=== PATIENT | male | born 1980 | race Caucasian/White ===

== ENCOUNTER → 2016-05-26 | Day surgery (SDC) | payer OTHER ==
--- NOTE | 2016-05-24 13:33 | MH ---
cc: CHAPIN ROMERO DATE OF ADMISSION: 05/26/2016 DATE OF 1980 CHIEF COMPLAINT Tonsillitis. HISTORY A 36-year-old male with chronic and recurrent tonsillitis. It has been getting worse over the past few years. He has multiple infections and has problems with severe tonsil stones. He complains of halitosis. He has been gargling up to six times per day without improvement. He is to undergo tonsillectomy. PAST MEDICAL HISTORY MEDICATIONS Cephalexin PHYSICAL EXAMINATION GENERAL: A well-developed, well-nourished male in no apparent distress. HEENT: Normocephalic, atraumatic. Extraocular motions intact. External canals clear. Lips, oral mucosa and pharynx show no lesion. Tonsils 3+ erythema, deep crypts and tonsillar debris. NECK: No masses. CHEST: Clear to auscultation. HEART: Regular rate. ABDOMEN: Soft. EXTREMITIES: No lesion. NEUROLOGIC: Exam nonfocal. ASSESSMENT This is a 36-year-old male with chronic and recurrent tonsillitis. The patient has halitosis and deep tonsillar crypts with debris. PLAN He is to undergo tonsillectomy. The risks and benefits were discussed with the patient. The risks include but are not limited to those of anesthesia, bleeding, unfavorable scarring, velopharyngeal insufficiency, dehydration, depression, abscess, voice change, bleeding. The patient states he understands and accepts the risks of the procedure. MD KADEEM Naylor/JOSE C /1:10 PM /1:27 PM
[~2016-05-26] VITALS: Ht 175.3 cm; Wt 86.9 kg
[~2016-05-26] MED LIST: *MEPERIDINE 25 MG INJ VIAL PERIprocedural Use ONLY ONE; ACETAMINOPHEN 1000 MG/100 ML VIAL IV ONE; ACETAMINOPHEN 325MG/HYDROcodone 7.5MG/15ML UDC ONE; ACETAMINOPHEN 325MG/HYDROcodone 7.5MG/15ML UDC PO PRN; ADDE15TA PO; DO NOT ADM ANY ANTICOAGULANT DRUGS XX PRN; HYDR1ELX PO; INSULIN HUMAN REGULAR 1,000 UNITS/10 ML VIAL SQ PRN; LACTATED RINGER'S 1000 ML IV SCH; LORA-392 PO; METOPROLOL TARTRATE 25 MG TAB PO PRN; MORPHINE SULFATE 4 MG/ML INJ IV PRN; ONDANSETRON HCL 4 MG/2 ML VIAL IV PRN; ONDANSETRON HCL 4 MG/2 ML VIAL IV PUSH ONE; PROPOFOL 200 MG/20 ML AMP IV ONE; SODIUM CHLORID 0.9% 500 ML IV SCH; fentaNYL CITRATE 250 MCG/5 ML AMP ONE
[2016-05-26 05:51] VITALS: BP 121/81; PULSE 78; RESP 20; TEMP 97.7; O2SAT 100
[2016-05-26 06:26] LABS: BASOPHIL # 0.1 TH/MM3 (0-0.2); BASOPHIL % 1.1 % (0.0-2.0); EOSINOPHIL # 0.5 TH/MM3 (0-0.4); EOSINOPHIL % 7.9 % (0.0-4.0); HEMO FLAGS DIFF FINAL; LYMPHOCYTE # 2.2 TH/MM3 (1.0-4.8); MEAN CORPUSCULAR HEMOGLOBIN 30.6 PG (27.0-34.0); MEAN CORPUSCULAR HGB CONC 34.3 % (32.0-36.0); MONO % 8.5 % (0.0-8.0); NEUT % 47.5 % (16.0-70.0); PLATELET COUNT 312 TH/MM3 (150-450); RED BLOOD COUNT 4.72 MIL/MM3 (4.50-5.90); RED CELL DISTRIBUTION WIDTH 12.8 % (11.6-17.2); WHITE BLOOD COUNT 6.3 TH/MM3 (4.0-11.0)
--- NOTE | 2016-05-26 09:41 | MP ---
cc: CHAPIN ROMERO M.D. DATE OF SURGERY 05/26/2016 INDICATIONS This is a 36-year-old male with chronic recurrent tonsillitis. He has problems with deep tonsil crypts and significant tonsil debris and halitosis. He has not responded to medical therapy. Plan is tonsillectomy. PREOPERATIVE DIAGNOSIS Chronic current tonsillitis, tonsillar hypertrophy. POSTOPERATIVE DIAGNOSIS Chronic current tonsillitis, tonsillar hypertrophy. PROCEDURE Tonsillectomy SUMMARY The patient was brought to the operating room, placed in the supine position, successfully placed under general anesthesia and prepared in the usual fashion for this procedure. The oral cavity exposed with a retractor. No submucous cleft. The right tonsil was removed with coblation technique from superior to inferior. The left tonsil removed in a similar fashion. Both tonsil beds inspected and hemostasis was obtained. He was suctioned. The retractors were removed. He was awakened, extubated and taken to recovery in stable condition. MD KADEEM Naylor/SKIP /9:28 AM /9:35 AM
[2016-05-26 10:40] VITALS: BP 120/60; PULSE 72; RESP 18; O2SAT 98
== END | disposition home or self-care (01) ==
LOC: HSDC 05:14
PROVIDERS: ATTEND Specialist
DX: J35.01 Chronic tonsillitis (principal); R59.9 Enlarged lymph nodes, unspecified
CPT/HCPCS: 00170; 42826; 85025; 88304; J0131; J2175; J2405; J3010; J7120

== ENCOUNTER 2016-05-28 11:32 | Emergency (ER) | payer OTHER ==
[~2016-05-28] VITALS: Ht 175.3 cm; Wt 86.0 kg
[~2016-05-28 11:32] MED LIST changes: -*MEPERIDINE 25 MG INJ VIAL PERIprocedural Use ONLY ONE; -ACETAMINOPHEN 1000 MG/100 ML VIAL IV ONE; -ACETAMINOPHEN 325MG/HYDROcodone 7.5MG/15ML UDC ONE; -ACETAMINOPHEN 325MG/HYDROcodone 7.5MG/15ML UDC PO PRN; -DO NOT ADM ANY ANTICOAGULANT DRUGS XX PRN; -HYDR1ELX PO; -INSULIN HUMAN REGULAR 1,000 UNITS/10 ML VIAL SQ PRN; -LACTATED RINGER'S 1000 ML IV SCH; -LORA-392 PO; -METOPROLOL TARTRATE 25 MG TAB PO PRN; -MORPHINE SULFATE 4 MG/ML INJ IV PRN; -ONDANSETRON HCL 4 MG/2 ML VIAL IV PRN; -ONDANSETRON HCL 4 MG/2 ML VIAL IV PUSH ONE; -PROPOFOL 200 MG/20 ML AMP IV ONE; -SODIUM CHLORID 0.9% 500 ML IV SCH; -fentaNYL CITRATE 250 MCG/5 ML AMP ONE
[2016-05-28 11:57] VITALS: BP 115/73; PULSE 90; RESP 16; TEMP 100; O2SAT 95
[2016-05-28] MEDS ORDERED: LORA-392 PO (12:09)
[2016-05-28] MEDS ORDERED: HYDR1ELX PO (12:09)
--- NOTE | 2016-05-28 12:25 | PD ---
HPI Chief Complaint: ENT Complaint Time Seen by Provider: 12:09 Travel History International Travel<30 days: No Contact w/Intl Traveler<30days: No Traveled to known affect area: No History of Present Illness HPI This patient had a tonsillectomy 2 days ago. According to his there were no complications. That night he was able to drink some liquids. The next morning he woke up with more swelling in his throat and difficulty swallowing. He has pain when he swallows. He has had some low-grade fevers. He is currently taking Zithromax and medicine for pain. He called the office of Dr. Coulter on the nurse told her to come to the ER and be evaluated for possible dehydration. Symptoms are moderately severe. Duration 2 days. No alleviating factors PFSH Past Medical History ADHD: Yes Cancer: No Cardiovascular Problems: No Diabetes: No Diminished Hearing: No Endocrine: No Gastrointestinal Disorders: No Genitourinary: No Hepatitis: No Hiatal Hernia: No Hypertension: No Immune Disorder: No Medical other: No Musculoskeletal: No Neurologic: No Psychiatric: Yes Reproductive: No Respiratory: No Immunizations Current: No Thyroid Disease: No Influenza Vaccination: No Past Surgical History AICD: No Joint Replacement: No Pacemaker: No Tonsillectomy: Yes (05/28/16) Other Surgery: Yes Social History Alcohol Use: Yes (occ) Tobacco Use: Yes (chew) Substance Use: No Allergies-Medications (Allergen,Severity, Reaction): Coded Allergies: No Known Allergies (Verified , 05/28/16) Reported Meds & Prescriptions Reported Meds & Active Scripts Active Reported Lortab Liq (Hydrocodone-Acetaminophen Liq) 10-300 Mg/15 Ml Elix 10 Ml PO Q6H PRN Ativan (Lorazepam) 0.5 Mg Tab Unknown Dose PO Q6H PRN Adderall (Amphetamine-Dextroamphetamine) 15 Mg Tab 25 Mg PO DAILY Avoid late evening doses. Space doses at least 4 to 6 hours if more than once/day dosing. Review of Systems General / Constitutional: No: Fever Eyes: No: Visual changes HENT: Positive: Sore Throat, No: Headaches Cardiovascular: No: Chest Pain or Discomfort Respiratory: No: Shortness of Breath Gastrointestinal: Positive: Dysphagia, No: Abdominal Pain Genitourinary: No: Dysuria Musculoskeletal: No: Pain Skin: No Rash Neurologic: No: Weakness Psychiatric: No: Depression Endocrine: No: Polydipsia Hematologic/Lymphatic: No: Easy Bruising Physical Exam Narrative GENERAL: Well-nourished, well-developed patient with difficulty swallowing SKIN: Warm and dry. HEAD: Atraumatic. Normocephalic. EYES: Pupils equal and round. No scleral icterus. No injection or drainage. ENT: No nasal bleeding or discharge. Mucous membranes pink and moist. Examination of the oral cavity reveals the uvula is midline but somewhat swollen. There is a lot of whitish coating in both tonsillar areas. NECK: Trachea midline. No JVD. CARDIOVASCULAR: Regular rate and rhythm. No murmur appreciated. RESPIRATORY: No accessory muscle use. Clear to auscultation. Breath sounds equal bilaterally. GASTROINTESTINAL: Abdomen soft, non-tender, nondistended. Hepatic and splenic margins not palpable. MUSCULOSKELETAL: No obvious deformities. No clubbing. No cyanosis. No edema. NEUROLOGICAL: Awake and alert. No obvious cranial nerve deficits. Motor grossly within normal limits. Normal speech. PSYCHIATRIC: Appropriate mood and affect; insight and judgment normal. Data Data Last Documented VS Vital Signs Date Time Temp Pulse Resp B/P Pulse Ox O2 Delivery O2 Flow Rate FiO2 05/28/16 11:57 100.0 90 16 115/73 95 Orders Ondansetron Inj (Zofran Inj) (05/28/16 12:30) Sodium Chlor 0.9% 1000 Ml Inj (Ns 1000 M (05/28/16 12:30) Methylprednisolone So Succ Inj (Solumedr (05/28/16 12:30) Complete Blood Count With Diff (05/28/16 12:18) Basic Metabolic Panel (Bmp) (05/28/16 12:18) Iv Access Insert/Monitor (05/28/16 12:18) Labs Laboratory Tests Test 05/28/16 12:25 White Blood Count 12.3 TH/MM3 Red Blood Count 4.66 MIL/MM3 Hemoglobin 14.1 GM/DL Hematocrit 42.3 % Mean Corpuscular Volume 90.8 FL Mean Corpuscular Hemoglobin 30.3 PG Mean Corpuscular Hemoglobin 33.4 % Concent Red Cell Distribution Width 11.9 % Platelet Count 336 TH/MM3 Mean Platelet Volume 8.0 FL Neutrophils (%) (Auto) 74.9 % Lymphocytes (%) (Auto) 15.3 % Monocytes (%) (Auto) 7.0 % Eosinophils (%) (Auto) 1.9 % Basophils (%) (Auto) 0.9 % Neutrophils # (Auto) 9.2 TH/MM3 Lymphocytes # (Auto) 1.9 TH/MM3 Monocytes # (Auto) 0.9 TH/MM3 Eosinophils # (Auto) 0.2 TH/MM3 Basophils # (Auto) 0.1 TH/MM3 CBC Comment DIFF FINAL Differential Comment Sodium Level 138 MEQ/L Potassium Level 4.6 MEQ/L Chloride Level 101 MEQ/L Carbon Dioxide Level 28.8 MEQ/L Anion Gap 8 MEQ/L Blood Urea Nitrogen 10 MG/DL Creatinine 0.95 MG/DL Estimat Glomerular Filtration 90 ML/MIN Rate Random Glucose 103 MG/DL Calcium Level 8.6 MG/DL MDM Medical Decision Making Medical Screen Exam Complete: Yes Emergency Medical Condition: Yes Medical Record Reviewed: Yes Differential Diagnosis Dehydration, postoperative swelling, odynophagia, dysphagia Narrative Course I have reviewed the patient's electronic medical record. Reviewed his operative note from 2 days ago IV placed I gave him IV Zofran and 1 L normal saline IV and one dose of IV Solu-Medrol CBC is normal Metabolic profile is normal I watched the patient drink glass of water needed so and kept it down. He has pain with swallowing but is not having any obstructive difficulty. I reviewed the case with Dr. Coulter's partner who is Dr. Preston he Recommended outpatient follow-up with a left-sided their office Diagnosis Primary Impression: Odynophagia Additional Impression: Postoperative pain Additional Instructions: Follow-up with ENT physician I have recommended clear liquids for 24 hours, then gradually advance as tolerated. Med/Other Pt SpecificInfo: Other Disposition: 01 DISCHARGE HOME Condition: Stable Florin Dias MD May 28, 2016 12:25
[2016-05-28] MEDS ORDERED: ONDANSETRON HCL 4 MG/2 ML VIAL IVP ONE (12:30)
[2016-05-28] MEDS ORDERED: methylPREDNISolone SOD SUCC 125 MG/2 ML VIAL IV PUSH ONE (12:30)
[2016-05-28] MEDS ORDERED: SODIUM CHLOR 0.9% 1000 ML INJ 1,000 ML IV ONE (12:30)
[2016-05-28 12:42] LABS: AUTOMATED NEUTROPHIL # 9.2 TH/MM3 (1.8-7.7); BASOPHIL # 0.1 TH/MM3 (0-0.2); BASOPHIL % 0.9 % (0.0-2.0); EOSINOPHIL # 0.2 TH/MM3 (0-0.4); EOSINOPHIL % 1.9 % (0.0-4.0); HEMATOCRIT 42.3 % (39.0-51.0); LYMPH % 15.3 % (9.0-44.0); LYMPHOCYTE # 1.9 TH/MM3 (1.0-4.8); MEAN CELL VOLUME 90.8 FL (80.0-100.0); MEAN CORPUSCULAR HEMOGLOBIN 30.3 PG (27.0-34.0); MEAN CORPUSCULAR HGB CONC 33.4 % (32.0-36.0); NEUT % 74.9 % (16.0-70.0); PLATELET COUNT 336 TH/MM3 (150-450); RED BLOOD COUNT 4.66 MIL/MM3 (4.50-5.90); RED CELL DISTRIBUTION WIDTH 11.9 % (11.6-17.2); WHITE BLOOD COUNT 12.3 TH/MM3 (4.0-11.0)
[2016-05-28 12:44] LABS: HEMO FLAGS DIFF FINAL
[2016-05-28 12:53] LABS: POTASSIUM 4.6 MEQ/L (3.5-5.1)
[2016-05-28 12:57] LABS: BICARBONATE 28.8 MEQ/L (21.0-32.0)
== END 2016-05-28 14:14 | disposition home or self-care (01) ==
LOC: PHED 11:32
DX: G89.18 Other acute postprocedural pain (principal); R13.19 Other dysphagia
CPT/HCPCS: 80048; 85025; 96361; 96374; 96375; 99283; J2405; J2930; J7030

== ENCOUNTER 2016-10-13 21:02 | Emergency (ER) | payer OTHER ==
[~2016-10-13] VITALS: Ht 175.3 cm; Wt 85.0 kg
[~2016-10-13 21:02] MED LIST changes: +HYDR1ELX PO; +LORA-392 PO
[2016-10-13 21:07] VITALS: BP 121/88; PULSE 108; RESP 18; TEMP 98; O2SAT 98
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
[2016-10-13] MEDS ORDERED: LIDOCAINE 1%/EPINEPHrine 1:100,000 SOLN 20 ML VIAL INFIL ONE (21:30)
[2016-10-13] MEDS ORDERED: LIDOCAINE 1%/EPINEPHrine 1:100,000 SOLN 30 ML VIAL INFIL ONE (21:30)
== END 2016-10-13 21:55 | disposition home or self-care (01) ==
LOC: PHEFT 21:02
DX: S81.812A Laceration without foreign body, left lower leg, initial encounter (principal); Z72.0 Tobacco use; W26.8XXA Contact with other sharp object(s), not elsewhere classified, initial encounter; Y93.02 Activity, running; Y92.007 Garden or yard of unspecified non-institutional (private) residence as the place of occurrence of the external cause; Y99.8 Other external cause status
CPT/HCPCS: 12002

== ENCOUNTER 2017-01-10 22:17 | Emergency (ER) | payer OTHER ==
[~2017-01-10] VITALS: Ht 175.3 cm; Wt 88.0 kg
[2017-01-10 22:18] VITALS: BP 133/61; PULSE 120; RESP 16; TEMP 98.8; O2SAT 98
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
[2017-01-10 23:41] VITALS: BP 142/80; PULSE 100; RESP 20; O2SAT 98
[2017-01-11] MEDS ORDERED: AUGM875T3 PO (00:52)
[2017-01-11] MEDS ORDERED: EC-N500T PO (00:52)
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
[2017-01-11] MEDS ORDERED: IBUPROFEN 600 MG TAB PO ONE (01:00)
[2017-01-11] MEDS ORDERED: AMOXICILLIN/CLAVULANATE K 875 MG TAB PO ONE (01:00)
== END 2017-01-11 01:09 | disposition home or self-care (01) ==
LOC: NEPE 22:17
DX: S00.31XA Abrasion of nose, initial encounter (principal); J32.9 Chronic sinusitis, unspecified; R04.0 Epistaxis; F90.9 Attention-deficit hyperactivity disorder, unspecified type; F17.220 Nicotine dependence, chewing tobacco, uncomplicated; W22.8XXA Striking against or struck by other objects, initial encounter; Z79.899 Other long term (current) drug therapy
CPT/HCPCS: 70450; 70486